=== PATIENT | male | born 1950 | race Caucasian/White ===

== ENCOUNTER 2016-09-08 06:38 | Emergency (ER) | payer BC ==
[2016-09-08] MEDS ORDERED: LIDOCAINE HCL 2% URO-JET 5 ML JEL.PF.APP MUCOUS MEM ONE (07:35)
[2016-09-08] MEDS ORDERED: NA PHOS,M-B/NA PHOS,DI-BA 133 ML BTL RECTAL ONE (08:36)
--- NOTE | 2016-09-08 09:20 | ER PHYSICIAN DOCUMENTATION ---
Physician Documentation [facility] Name:Devi Renae Age:66 yrs Sex:Male :1950 Arrival Date:09/08/2016 Time:06:38 Bed3 Private MD:Physician, No ED Alek Mcdaniel Disposition: 09/08/16 08:37 Discharged to Home/Self Care. Impression: Fecal Impaction. - Condition is Good. - Discharge Instructions: FECAL IMPACTION, Treated. - Medical Reconciliation form form. - Follow up: Private Physician; When: As needed; Reason: Continuance of care. - Problem is new. - Symptoms have improved. HPI: 09/08 08:29 This 66 yrs old Male presents to ER via Walk In with complaints of Abdominal jm Pain. 08:29 The patient presents with constipation, the patient or guardian reports hard stools. jm Onset: The symptoms/episode began/occurred today. Severity of pain: At its worst the pain was severe. Pt ate a 5lb of [place] fish and was in the car not drinking any fluids, so feels that is why he is dehydrated. . Historical: - Allergies: No known drug Allergies; - Tetanus: < 10 years. - Ebola Screening: : Patient negative for fever greater than or equal to 101.5 degrees Fahrenheit, and additional compatible Ebola Virus Disease symptoms. Patient denies exposure to infectious person. Patient denies travel to an Ebola-affected area in the 21 days before illness onset. No symptoms or risks identified at this time. . - Immunization history: Flu Vaccine < 1 year. - Social history: Smoking status: Patient states was never smoker of tobacco. ROS: 08:34 Abdomen/GI: Positive for abdominal pain, constipation, abdominal cramps, rectal pain, jm Negative for nausea, vomiting. 08:34 Neuro: Negative for headache. 08:34 Psych: Positive for insomnia. Exam: 08:34 Constitutional: The patient appears alert, awake. jm 08:34 Abdomen/GI: Bowel sounds: normal, Palpation: abdomen is soft and non-tender, Rectal exam: fecal impaction, that is severe. 08:34 Psych: Behavior/mood is pleasant, cooperative, anxious, Affect is calm. Vital Signs: 06:51 BP 137 / 62; Pulse 80; Resp 20; Temp 97.8; Pulse Ox 95% on R/A; Weight 86.18 kg; Height bw2 5 ft. 10 in. (177.80 cm); Pain 7/; 09:18 Pulse 74; Resp 16; Pulse Ox 95% on R/A; lp 06:51 Body Mass Index 27.26 (86.18 kg, 177.80 cm) bw2 Procedures: 08:35 Fecal disimpaction: digital disimpaction was performed, with a large amount of stool jm expressed. The patient tolerated the intervention well. MDM: 06:50 Patient medically screened. 08:35 Differential diagnosis: impaction. Data reviewed: vital signs, nurses notes, and as a result, I will discharge patient. Counseling: I had a detailed discussion with the patient and/or guardian regarding: the historical points, exam findings, and any diagnostic results supporting the discharge/admit diagnosis, the need for outpatient follow up, with the patient's primary care provider. Response to treatment: the patient's symptoms have resolved after treatment. ED course: Pt disimpacted and then given an enema w good results. . 09/08 09:18 Order name: Enema: Fleet's; Complete Time: 09:18 Dispensed Medications: 08:05 Drug: Urojet - Lidocaine Viscous Gel 2 % 1 application; Route: Mucous Membrane; lp Signatures: Nevaeh Deleon RN RN Alek Mccann MD MD [facility]
--- NOTE | 2016-09-08 09:20 | ER NURSING DOCUMENTATION ---
Nurse's Notes [facility] Name:Devi Renae Age:66 yrs Sex:Male :1950 Arrival Date:09/08/2016 Time:06:38 Bed3 Private MD:Shyla Mckeon Diagnosis:Fecal Impaction Presentation: 09/08 06:47 Presenting complaint: Patient states: he believes he is impacted with stool. pt states bw2 he has been traveling and his eating habits are not like they normally are. pt states it has been 2 days since he has a bowel movement. Transition of care: patient was not received from another setting of care. 06:47 Method Of Arrival: Walk In 2 06:47 Acuity: TRISHA 3 bw2 Triage Assessment: 06:50 General: Appears uncomfortable, Behavior is anxious. Pain: Complains of pain in lower bw2 abdominal pain. GI: Reports constipation. Historical: - Allergies: No known drug Allergies; - Tetanus: < 10 years. - Ebola Screening: : Patient negative for fever greater than or equal to 101.5 degrees Fahrenheit, and additional compatible Ebola Virus Disease symptoms. Patient denies exposure to infectious person. Patient denies travel to an Ebola-affected area in the 21 days before illness onset. No symptoms or risks identified at this time. . - Immunization history: Flu Vaccine < 1 year. - Social history: Smoking status: Patient states was never smoker of tobacco. Screenin:56 Infectious Disease Risk None. Abuse screen: Denies threats or abuse. Nutritional bw2 screening: No deficits noted. Assessment: 06:56 See Triage Assessment done by same RN. GI: Bowel sounds present X 4 quads. Abdomen is bw2 tender to palpation X 4 quads. Vital Signs: 06:51 BP 137 / 62; Pulse 80; Resp 20; Temp 97.8; Pulse Ox 95% on R/A; Weight 86.18 kg; Height bw2 5 ft. 10 in. (177.80 cm); Pain 7/10; 09:18 Pulse 74; Resp 16; Pulse Ox 95% on R/A; lp 06:51 Body Mass Index 27.26 (86.18 kg, 177.80 cm) bw2 ED Course: 06:41 Patient arrived in ED. em2 06:41 Physician, Shyla is Private Physician. em2 06:47 Barbara Nieto is Primary Nurse. bw2 06:48 Triage completed. bw2 06:50 Alek Haas MD is Attending Physician. jm 06:56 Valuables Remains with patient Patient has correct armband on for positive bw2 identification. Bed in low position. Administered Medications: 08:05 Drug: Urojet - Lidocaine Viscous Gel 2 % 1 application; Route: Mucous Membrane; lp Output: 09:19 Stool: 3 (Loose Stool) ; Total: 0ml. lp Outcome: 08:37 Discharge ordered by . sarah 09:16 Discharged to home ambulatory. lp 09:16 Condition: improved 09:16 Instructed on discharge instructions, follow up and referral plans. medication usage. 09:19 Patient left the ED. lp Signatures: Nevaeh Deleon RN RN Alek Mccann MD MD jm Meinking-reg, Samantha-reg em2 Wisely, Barbara bw2
== END 2016-09-08 09:20 | disposition home or self-care (01) ==
LOC: ER 06:38
DX: K56.41 Fecal impaction (principal)
CPT/HCPCS: 99283